=== PATIENT | female | born 1955 | race Caucasian/White ===

== ENCOUNTER → 2019-04-02 | Outpatient (CLI) | payer BC ==
--- NOTE | 2019-04-15 12:06 | KCIC ---
Bilateral digital screening mammograms with 3-D tomosynthesis: Reason for examination: Routine screening. Comparison is made to previous studies dated 09/10/2016 and 06/22/2015. Bilateral mammograms in CC and oblique projections were obtained with 2-D imaging and 3-D tomosynthesis imaging on a Siemens Inspiration unit and reviewed on the workstation. Interpretation was made with the benefit of CAD. The skin and nipples show no abnormalities. No abnormal axillary lymph nodes are seen. The breast parenchyma shows scattered fatty and fibroglandular density. (Breast density: Category B.) There continues to be nodular asymmetry in the 12:00 position of the left breast which has not changed. There continues to be small intramammary lymph node at 10:00 C position of the right breast. There are no new dominant masses, suspicious calcifications or architectural distortion. Benign calcifications are present. Impression: No evidence of malignancy. Recommend routine screening. BI-RAD Category 2: Benign. "Our facility is accredited by the [employer] Mammography [employer]." This patient's information has been entered into a reminder system for the patient to be notified with the results of her examination and a target date for the next mammogram. Electronically signed by: Evelin Pollack MD (04/15/2019 12:02 PM) [id number]
== END | disposition home or self-care (01) ==
LOC: KCIC MAMMO 08:34
PROVIDERS: ATTEND Family Medicine
DX: Z12.31 Encounter for screening mammogram for malignant neoplasm of breast (principal); N64.89 Other specified disorders of breast
CPT/HCPCS: 77063; 77067

== ENCOUNTER → 2020-02-16 | Outpatient (CLI) | payer BC ==
--- NOTE | 2020-02-16 09:09 | KCIC ---
Examination: SCAN OF ABDOMINAL AORTA History: Reason: AAA SCREEN HX OF SMOKING / Spl. Instructions: / History: Comparison/Correlation: None Findings: Abdominal aortic ultrasound examination was performed. Proximal abdominal aorta obscured due to overlying bowel gas and evaluation of this level is nondiagnostic. Mid abdominal aorta has a diameter of 1.95 cm. Peak systolic velocity is 60.4 cm/s. Distal abdominal aorta has a diameter of 1.69 cm and peak systolic velocity is 89.9 cm/s. Right common iliac artery has a diameter of up to 1 cm with a systolic velocity of 117 cm/s. Left common iliac artery has a diameter of 0.96 cm with peak systolic velocity of 164.2 cm/s Plaque is seen throughout the abdominal aorta. Impression: No mid or distal abdominal aortic aneurysm. Proximal abdominal aorta is obscured due to bowel gas and evaluation at this level is nondiagnostic as a result. Electronically signed by: Vincent Lara MD (02/16/2020 9:06 AM) [id number]
== END | disposition home or self-care (01) ==
LOC: KCIC US 07:50
PROVIDERS: ATTEND Family Medicine
DX: I70.0 Atherosclerosis of aorta (principal); Z87.891 Personal history of nicotine dependence
CPT/HCPCS: 76770

== ENCOUNTER → 2020-04-26 | Outpatient (CLI) | payer BC ==
--- NOTE | 2020-04-26 14:18 | KCIC ---
Bilateral digital diagnostic mammogram with tomosynthesis and left breast ultrasound Reason for examination: Left upper breast pain. No breast lump or any other breast symptoms. Patient is also due for bilateral breast screening. Comparison is made to previous study dated mammogram April 02, 2019 and priors Routine CC and MLO digital views obtained. Interpretation was made with the benefit of CAD. Mammogram: The skin and nipples show no abnormalities. No abnormal axillary lymph nodes are seen. The breast parenchyma is heterogeneously dense. (Breast density: Category C.) There are no suspicious masses, suspicious calcifications or architectural distortion. Mild diffuse nodularity of the breast tissue bilaterally stable. There is nodular asymmetry of the left upper breast tissue stable to the prior exam. ULTRASOUND: Mild left breast subareolar duct ectasia. Sonography of the left upper breast demonstrates no cyst, solid mass or suspicious abnormality, the left upper breast nodular asymmetry which is mammographically stable likely represents nodular glandular tissue based on the combined mammographic and sonographic features. No axillary adenopathy. Impression: Negative bilateral mammogram and left breast ultrasound. The patient's breast symptoms should be followed clinically. Recommend routine screening. ?Your patient's mammogram demonstrates that she has dense breast tissue (breast density category C or D), which could hide abnormalities, and if she has other risk factors for breast cancer that have been identified, she might benefit from supplemental screening tests that may be suggested by you as her ordering physician. Dense breast tissue, in and of itself, is a relatively common condition. Therefore, this information is not provided to cause undue concern, but rather to raise your awareness and to promote discussion with your patient regarding the presence of other risk factors, in addition to dense breast tissue. Your patient's mammography results will be sent to her. BI-RAD Category 2: Benign. "Our facility is accredited by the [employer] Mammography [employer]." This patient's information has been entered into a reminder system for the patient to be notified with the results of her examination and a target date for the next mammogram. Electronically signed by: Avelino Carpenter MD (04/26/2020 2:16 PM) [id number]
== END ==
LOC: KCIC MAMMO 12:25
PROVIDERS: ATTEND Family Medicine
DX: N60.42 Mammary duct ectasia of left breast (principal); N60.41 Mammary duct ectasia of right breast; N63.42 Unspecified lump in left breast, subareolar; N63.41 Unspecified lump in right breast, subareolar
CPT/HCPCS: 76641; 77066; G0279; 77062

== ENCOUNTER → 2021-04-21 | Outpatient (CLI) | payer MEDICARE, BC ==
--- NOTE | 2021-04-21 12:59 | KCIC ---
Bilateral digital screening mammograms with 3-D tomosynthesis: Reason for examination: Routine screening. Comparison is made to previous studies dated back to 06/22/2015. Bilateral mammograms in CC and oblique projections were obtained with 2-D imaging and 3-D tomosynthes is imaging on a Siemens Inspiration unit and reviewed on the workstation. Interpretation was made wit h the benefit of CAD. The skin and nipples show no abnormalities. No abnormal axillary lymph nodes are seen. The breast par enchyma shows scattered fatty and fibroglandular density. (Breast density: Category B.) There continu es to be nodular asymmetry bilaterally which appears to be stable. There are no dominant masses, susp icious calcifications or architectural distortion. Benign calcifications are seen bilaterally. Biopsy clip remains present on the right Impression: No evidence of malignancy. Recommend routine screening. BI-RAD Category 2: Benign. "Our facility is accredited by the [employer] Mammography [employer]." This patient's information has been entered into a reminder system for the patient to be notified wit h the results of her examination and a target date for the next mammogram. Electronically signed by: Evelin Pollack MD (04/21/2021 12:57 PM) [email or web address]
== END ==
LOC: KCIC MAMMO 10:25
PROVIDERS: ATTEND Family Medicine
DX: Z12.31 Encounter for screening mammogram for malignant neoplasm of breast (principal)
CPT/HCPCS: 77063; 77067